=== PATIENT | female | born 2005 | race Caucasian/White ===

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

== ENCOUNTER → 2023-02-02 | Outpatient (CLI) | payer OTHER ==
[~2023-02-02] MED LIST: PREDNISONE20 MG PO
== END ==
LOC: COL.RAD 11:07
DX: R55 Syncope and collapse (principal)